=== PATIENT | female | born 1955 | race Caucasian/White ===

== ENCOUNTER 2020-10-07 14:37 | Emergency (ER) | payer OTHER ==
[~2020-10-07] VITALS: Ht 170.2 cm; Wt 97.5 kg
[2020-10-07] MEDS ORDERED: CYCL-1 PO (15:48)
[2020-10-07] MEDS ORDERED: IBUP-1984 PO (15:48)
[2020-10-07] MEDS ORDERED: cyclobenzaprine 10mg tablet PO ONE (15:50)
[2020-10-07] MEDS ORDERED: ketorolac tromethamine 15mg/ml inj. IM ONE (15:50)
[2020-10-07] MEDS ORDERED: ondansetron 4mg rapidly disintigrating tab PO ONE (15:55)
[2020-10-07] MEDS ORDERED: HYDROcodone/acetaminophen 5mg/325mg tablet PO ONE (15:55)
[2020-10-07 16:13] VITALS: BP 154/85
== END 2020-10-07 16:16 | disposition home or self-care (01) ==
LOC: ER 14:37
DX: M54.2 Cervicalgia (principal); S20.311A Abrasion of right front wall of thorax, initial encounter; M25.562 Pain in left knee; Z88.6 Allergy status to analgesic agent; Z79.899 Other long term (current) drug therapy; V87.7XXA Person injured in collision between other specified motor vehicles (traffic), initial encounter; Y93.89 Activity, other specified; Y92.89 Other specified places as the place of occurrence of the external cause; Y99.8 Other external cause status
CPT/HCPCS: 71045; 72125; 99284

== ENCOUNTER 2021-03-07 03:37 | Emergency (ER) | payer MEDICARE ==
[~2021-03-07] VITALS: Ht 167.6 cm; Wt 86.6 kg
[~2021-03-07 03:37] MED LIST: CYCL-1 PO
[2021-03-07 03:50] VITALS: BP 140/84
--- NOTE | 2021-03-07 06:37 | NUR ---
PT IN LOBBY AWAITING ROOM.
== END 2021-03-07 17:18 | disposition left against medical advice (07) ==
LOC: ER 03:38
DX: M54.89 Other dorsalgia (principal); Z53.21 Procedure and treatment not carried out due to patient leaving prior to being seen by health care provider